=== PATIENT | female | born 1975 ===

== ENCOUNTER 2017-05-17 14:27 | Emergency (ER) | payer MEDICAID ==
[2017-05-17 14:28] VITALS: BMI 22.0
[2017-05-17 14:35] VITALS: BP 105/73; PULSE 89; RESP 16; TEMP 97.5; O2SAT 97
--- NOTE | 2017-05-17 15:13 | ED PDOC ---
Syncope/Near Syncope/Dizziness Time Seen by Provider: 05/17/17 14:43 Chief Complaint (Nursing): Syncope Chief Complaint (Provider): Syncope History Per: Patient History/Exam Limitations: no limitations Onset/Duration Of Symptoms: Mins Additional Complaint(s): 41 y/o female with a past medical history of depression and asthma who presents to the emergency department after a syncopal episode prior to arrival. Patient states she was smoking a cigarette outside and started sweating and experiencing generalized weakness after she went inside the store. Reports she was found passed out on the floor and remembers waking up.Admits she only had a cup of coffee and nothing to eat prior to syncope. At this moment, patient has a headache with possible head injury. Denies abdominal pain, chest pain, shortness of breath, any active bleeding, or suicidal/homicidal ideation. Past Medical History Reviewed: Historical Data, Nursing Documentation, Vital Signs Vital Signs: Last Vital Signs Temp 97.5 F L 05/17/17 14:31 Pulse 89 05/17/17 14:31 Resp 16 05/17/17 14:31 BP 105/73 05/17/17 14:31 Pulse Ox 97 05/17/17 14:31 - Medical History PMH: Asthma, Depression, Gastritis - Surgical History Surgical History: Tonsillectomy - Family History Family History: States: Unknown Family Hx - Social History Current smoker - smoking cessation education provided: Yes Alcohol: None Drugs: Denies - Immunization History Hx Influenza Vaccination: Yes Hx Pneumococcal Vaccination: Yes - Home Medications Home Medications: Ambulatory Orders Medication Instructions Recorded Citalopram [celeXA] 40 mg PO DAILY #20 tab 05/19/16 Famotidine [Pepcid] 20 mg PO DAILY #30 tab 05/19/16 Albuterol HFA [Ventolin HFA 90 1 puff IH Q4 #1 inhaler 11/04/16 mcg/actuation (8 g)] predniSONE [Prednisone] 60 mg PO DAILY #12 tab 11/04/16 Sulfamethoxazole/Trimethoprim 1 tab PO BID #20 tab 05/17/17 [Bactrim DS 800 mg-160 mg] - Allergies Allergies/Adverse Reactions: Allergies Allergy/AdvReac Type Severity Reaction Status Date / Time Penicillins Allergy Severe RASH Verified 05/17/17 14:31 Review of Systems ROS Statement: Except As Marked, All Systems Reviewed And Found Negative (As per HPI, otherwise negative) Constitutional: Positive for: Sweats ("hot"), Weakness (generalized). Negative for: Other (active bleeding noted) Cardiovascular: Negative for: Chest Pain Respiratory: Negative for: Shortness of Breath Gastrointestinal: Negative for: Abdominal Pain Neurological: Positive for: Headache (status post possible head injury) Psych: Negative for: Depression, Suicidal ideation (or homicidal ideation) Physical Exam - Reviewed Nursing Documentation Reviewed: Yes Vital Signs Reviewed: Yes - Physical Exam Appears: Positive for: Non-toxic, No Acute Distress Head Exam: Positive for: ATRAUMATIC, NORMAL INSPECTION, NORMOCEPHALIC Skin: Positive for: Normal Color, Warm, Dry Eye Exam: Positive for: Normal appearance, EOMI, PERRL Neck: Positive for: Normal, Supple Cardiovascular/Chest: Positive for: Regular Rate, Rhythm. Negative for: Murmur Respiratory: Positive for: Normal Breath Sounds. Negative for: Accessory Muscle Use, Respiratory Distress Gastrointestinal/Abdominal: Positive for: Normal Exam, Soft. Negative for: Tenderness Back: Positive for: Normal Inspection Extremity: Positive for: Normal ROM. Negative for: Pedal Edema Neurologic/Psych: Positive for: Alert, Oriented (x3) - Laboratory Results Result Diagrams: 05/17/17 15:42 05/17/17 15:42 - ECG O2 Sat by Pulse Oximetry: 97 (RA) Pulse Ox Interpretation: Normal Medical Decision Making Medical Decision Making: Time: 1454 Initial Impression: Syncope differential include cardiac arrhythmia, vasovagal syncope, anemia, substance abuse and possible head injury Initial Plan: --Head CT --EKG --Alcohol Serum --BMP --Drug Screen, Urine --Troponin I --Urine Preg --CBC w/ diff --D Dimer (COAG) --Reevaluation --Declined crisis evaluation. --Accucheck: 125 --EKG: Normal with a regular rate of 60 bpm. Time: 1500 --Patient transferred to Dr. Destini PIERRE. Scribe~Attestation: Documented by Elsy Hernandez, acting as a scribe for Charlie Alicea MD. Provider Scribe~Attestation: All medical record entries made by the Scribe were at my direction and personally dictated by me. I have reviewed the chart and agree that the record accurately reflects my personal performance of the history, physical exam, medical decision making, and the department course for this patient. I have also personally directed, reviewed, and agree with the discharge instructions and disposition. Disposition - Clinical Impression Clinical Impression: Syncope - Patient ED Disposition Is Patient to be Admitted: No Counseled Patient/Family Regarding: Studies Performed, Diagnosis - Disposition Disposition: Transfer of Care (To Dr. Georges) Disposition Time: 15:00 Condition: FAIR Prescriptions: Sulfamethoxazole/Trimethoprim [Bactrim DS 800 mg-160 mg] 1 tab PO BID #20 tab Instructions: Urinary Tract Infection in Women (ED), Syncope (ED) Forms: [employer] ([place])
--- NOTE | 2017-05-17 15:25 | ED PDOC ---
- Laboratory Results Result Diagrams: 05/17/17 15:42 05/17/17 15:42 - ECG O2 Sat by Pulse Oximetry: 97 (RA) Pulse Ox Interpretation: Normal Medical Decision Making Medical Decision Making: Time: 1500 --Patient endorsed from Dr. Alicea to me. --Pending Head CT and lab work. Time: 1550 --Toradol 30 mg IVP --Urine Culture --Reevaluation Time: 1542 --Alcohol, Quantitative: <10 --Troponin I: <0.0120 --D-Dimer, Quantitative: 678 (High) Time: 1611 -- Head CT FINDINGS: HEMORRHAGE: No intracranial hemorrhage. BRAIN: No mass effect or edema. No atrophy or chronic microvascular ischemic changes. VENTRICLES: Unremarkable. No hydrocephalus. CALVARIUM: Unremarkable. PARANASAL SINUSES: Unremarkable as visualized. No significant inflammatory changes. MASTOID AIR CELLS: Unremarkable as visualized. No inflammatory changes. OTHER FINDINGS: None. IMPRESSION: No acute intracranial pathology. Scribe~Attestation: Documented by Elsy Hernandez, acting as a scribe for Alexis Georges MD. Advised 24 hr obs for syncope and elevated d dimer. Pt states she prefers to f/ u outpt with Dr. Reagan. Aware of risks including recurrent syncope and arryhtmia Provider Scribe~Attestation: All medical record entries made by the Scribe were at my direction and personally dictated by me. I have reviewed the chart and agree that the record accurately reflects my personal performance of the history, physical exam, medical decision making, and the department course for this patient. I have also personally directed, reviewed, and agree with the discharge instructions and disposition. Disposition - Clinical Impression Clinical Impression: Syncope - POA Present On Arrival: None - Disposition Disposition: Routine/Home Disposition Time: 17:41 Condition: FAIR Prescriptions: Sulfamethoxazole/Trimethoprim [Bactrim DS 800 mg-160 mg] 1 tab PO BID #20 tab Instructions: Syncope (ED), Urinary Tract Infection in Women (ED) Forms: [employer] ([place])
[2017-05-17 16:08] LABS: BASO % 0.6 % (0.0-2.0); EOS % 0.5 % (0.0-4.0); HEMATOCRIT 44.6 % (34.0-47.0); LYMPH # 1.4 K/uL (1.0-4.3); MEAN CELL VOLUME 94.5 fl (81.0-99.0); MEAN CORPUSCULAR HEMOGLOBIN 31.6 pg (27.0-31.0); MEAN CORPUSCULAR HGB CONC 33.5 g/dL (33.0-37.0); MEAN PLATELET VOLUME 8.3 fl (7.2-11.7); MONO # 0.5 K/uL (0.0-0.8); MONO % 7.2 % (0.0-10.0); NEUT # 5.5 K/uL (1.8-7.0); NEUT % 72.7 % (50.0-75.0); NRBC % 0.2 % (0.0-0.0); WHITE BLOOD COUNT 7.6 K/uL (4.8-10.8)
--- NOTE | 2017-05-17 16:13 | CT ---
PROCEDURE: CT HEAD WITHOUT CONTRAST. HISTORY: head injury COMPARISON: None available. TECHNIQUE: Axial computed tomography images were obtained through the head/brain without intravenous contrast. Radiation dose: Total exam DLP = 824.6 mGy-cm. This CT exam was performed using one or more of the following dose reduction techniques: Automated exposure control, adjustment of the mA and/or kV according to patient size, and/or use of iterative reconstruction technique. FINDINGS: HEMORRHAGE: No intracranial hemorrhage. BRAIN: No mass effect or edema. No atrophy or chronic microvascular ischemic changes. VENTRICLES: Unremarkable. No hydrocephalus. CALVARIUM: Unremarkable. PARANASAL SINUSES: Unremarkable as visualized. No significant inflammatory changes. MASTOID AIR CELLS: Unremarkable as visualized. No inflammatory changes. OTHER FINDINGS: None. IMPRESSION: No acute intracranial pathology.
[2017-05-17 16:15] LABS: ALCOHOL SERUM < 10 mg/dl (0-10); BLOOD UREA NITROGEN 17 mg/dl (7-17); CALCIUM 9.8 mg/dL (8.4-10.2); CARBON DIOXIDE 31 mmol/L (22-30); CHLORIDE 100 mmol/L (98-107); GFR AFRICAN-AMERICAN > 60; GLUCOSE,RANDOM 109 mg/dL (65-105); POTASSIUM 4.4 MMOL/L (3.6-5.0); SODIUM 141 mmol/l (132-148)
--- NOTE | 2017-05-18 10:02 | CARD ---
APPROVED REPORT EKG Measurement Heart [id number] <Conclusion> Normal sinus rhythm Normal ECG
== END 2017-05-17 18:14 | disposition home or self-care (01) ==
LOC: H.ER 14:27
DX: R55 Syncope and collapse (principal); F32.9 Major depressive disorder, single episode, unspecified; J45.909 Unspecified asthma, uncomplicated; Z88.0 Allergy status to penicillin; F17.200 Nicotine dependence, unspecified, uncomplicated
CPT/HCPCS: 70450; 80048; 80320; 81025; 82948; 84484; 85025; 85378; 87086; 87181; 93005; 96374; 99285; J1885